=== PATIENT | male | born 1980 | race Caucasian/White ===

== ENCOUNTER → 2020-12-04 02:47 | Outpatient (CLI) | payer BC, SELFPAY ==
[2020-12-04 21:05] LABS: SARS-CoV-2 RNA PCR Negative
== END ==
PROVIDERS: PCP Family Medicine; Visit Provider Surgery
DX: Z01.812 Encounter for preprocedural laboratory examination (principal); Z20.822 Contact with and (suspected) exposure to COVID-19
CPT/HCPCS: C9803; U0003; U0005

== ENCOUNTER 2020-12-07 01:14 | Day surgery (SDC) | payer BC, SELFPAY ==
[2020-11-28 10:30] VITALS: BMI 52.3
--- NOTE | 2020-12-06 09:29 | WPDANESEPPF ---
Anes - Initial Pre Proc Eval Procedure: Operation Date: 12/07/20 13:00 Proposed Procedures p Excision Thrombosed External Hemorrhoid - Kaiden Chavez MD Date/Time: 12/06/20 09:29 Surgeon: Kaiden Chavez MD Pre Op Diagnosis: thrombosed external hemorrhoid Patient Data Age: 40 Gender: M Height: 1.85 m Weight: 180 kg Allergies Allergy/AdvReac Type Severity Reaction Status Date / Time Iodinated Contrast Media AdvReac Mild vomiting Verified 12/07/20 11:06 Home Medications Medication Instructions Recorded Confirmed Type hydrocortisone acetate 25 mg 25 mg RECTAL BID #12 ea 10/24/20 11/28/20 Rx rectal suppository multivitamin 1 tablet PO DAILY 10/24/20 12/07/20 History vitamin B complex 1 tablet PO DAILY 10/24/20 12/07/20 History betamethasone valerate 1 applic TOPICAL BID 12/07/20 12/07/20 History lisinopril 20 mg PO DAILY 12/07/20 12/07/20 History Patient hx anesthesia problems: none Family hx anesthesia problems: none PMFSH Past Medical History Medical History B12 deficiency Essential hypertension GERD without esophagitis Mass of kidney Psoriasis Right hydrocele Surgical History Surgical History History of colon resection History of tonsillectomy Hx of laparoscopic gastric banding S/P cholecystectomy Family History Family History Father Diabetes mellitus Mother Hypertension Grandparent Hypertension Family history of cardiovascular disease Family history of malignant neoplasm of breast in first degree relative Sibling Family history of arthritis Other Acute myocardial infarction Family history of polycystic kidney disease Social History Social History Smoking status: Never smoker Alcohol intake: current Substance use: never Substance use type: does not use Living arrangements: with family 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 Gender identity (if verbalized by the patient): Male Spiritual care concerns: No Agree to blood products: Yes Anes - Eval Final PreProcedure Day of Procedure 12/06/20 09:29 Patient weight: super morbidly obese Heart: regular rate and rhythm Lungs: clear to auscultation and normal air movement Airway: Mallampati scale class III Neurological: alert and oriented Last oral intake: >/= 8 hours ASA classification: III Emergent: no Anesthetic plan: proceed Anesthesia type and monitoring: general ETT and standard monitoring Informed Consent: The patient's anesthetic plan and its attendant risks and benefits were discussed with the patient/family/POA. Questions were solicited and answers provided to the satisfaction of the patient/family/POA.
[2020-12-07] VITALS (8 sets, daily range): BP systolic 132–170; BP diastolic 58–90; PULSE 65–92; RESP 13–20; TEMP 36.1–36.2; O2SAT 98–100
--- NOTE | 2020-12-07 08:17 | PM.SD2 ---
Same Day Admit/Disch: HPI History of Present Illness Chief complaint: thrombosed external hemorrhoid Narrative: Perez Patino is a 40 year old male who in September started noticing some mild rectal bleeding but also a tender painful nodule on the left side of the perianal area. He was seen in the office in October and noted to have a healing thrombosed external hemorrhoid in the left posterior quadrant. He reports he had a colonoscopy about 5 years ago. The patient is morbidly obese. He did have a colon resection for diverticulitis in 2010. Prior to that he had a laparoscopic gastric band in 2007. In 2011 he had the gastric band removed and had a gastric sleeve performed. In 2018 he had a laparoscopic cholecystectomy. He is taken to surgery now for excision of thrombosed external hemorrhoid. [facility] Past Medical History Medical History B12 deficiency Essential hypertension GERD without esophagitis Mass of kidney Psoriasis Right hydrocele Surgical History Surgical History History of colon resection History of tonsillectomy Hx of laparoscopic gastric banding S/P cholecystectomy Family History Family History Father Diabetes mellitus Mother Hypertension Grandparent Hypertension Family history of cardiovascular disease Family history of malignant neoplasm of breast in first degree relative Sibling Family history of arthritis Other Acute myocardial infarction Family history of polycystic kidney disease Social History Social History Smoking status: Never smoker Alcohol intake: current Substance use: never Substance use type: does not use Living arrangements: with family 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 Gender identity (if verbalized by the patient): Male Spiritual care concerns: No Agree to blood products: Yes Same Day Admit/Disch: Med Pre-admit Medications Home Medications Medication Instructions Recorded Confirmed Type hydrocortisone acetate 25 mg 25 mg RECTAL BID #12 ea 10/24/20 11/28/20 Rx rectal suppository multivitamin 1 tablet PO DAILY 10/24/20 12/07/20 History vitamin B complex 1 tablet PO DAILY 10/24/20 12/07/20 History betamethasone valerate 1 applic TOPICAL BID 12/07/20 12/07/20 History hydrocodone-acetaminophen 1 - 2 tablet PO Q6H PRN #7 tablet 12/07/20 Rx ketorolac 10 mg PO Q6H 4 Days #16 tablet 12/07/20 Rx lisinopril 20 mg PO DAILY 12/07/20 12/07/20 History Exam Const: General: comfortable, no acute distress, alert and awake Nutritional Appearance: obese Orientation/consciousness: patient oriented x3 Limitations: no limitations HENMT: Head: normocephalic and atraumatic Mouth: Yes Normal oral and palatal mucosa present Eyes: Conjunctivae: conjunctivae normal Pupils: Equal, round and reactive pupils present EOM: EOMs intact bilaterally Neck: Neck: normal visual inspection, no lymphadenopathy and nontender Resp: Effort & Inspection: normal respiratory effort Auscultation: clear to auscultation bilaterally Cardio: Rate: regular rate Rhythm: regular rhythm Heart sounds: no gallops, no murmurs and no rubs GI: Inspection: non-distended and obesity GI Palp: Yes Soft to palpation, No Tenderness to palpation present (GI), No Hepatomegaly present and No Splenomegaly present Rectal Exam: normal sphincter tone, External hemorrhoid(s) present ( left posterior quadrant, tender) and No Internal hemorrhoid(s) present Skin: Lesions: no lesions Rashes: no rashes Neuro: General: no focal motor deficits and CN's II-XI intact bilaterally Cranial nerves: Yes Equal, round and reactive pupils present, Yes Bilaterally intact EOM present, Yes facial symmetry and Yes Midline tongue present Speech: normal speech Motor exam (ne
--- NOTE | 2020-12-07 08:21 | WPDHPUPDATE1 ---
History and Physical Update Update Date/Time: 12/07/20 08:21 History and Physical has been reviewed, including an updated exam of the patient. There are NO changes in the patient's condition. Risks, benefits, and alternatives have been discussed and questions answered. Patient agrees to proceed with procedure.
[2020-12-07] MEDS: LACTATED RINGERS 1,000 ML 30 ML IV CONT (11:37)
[2020-12-07] MEDS: ACETAMINOPHEN 500 MG TABLET 1000 MG PO (11:37)
[2020-12-07] MEDS: KETOROLAC 15 MG/ML VIAL (*BKC) IV PUSH (11:39)
--- NOTE | 2020-12-07 12:45 | SUR.PREOP ---
Resting without needs or complaints.
[2020-12-07] MEDS: ceFAZolin 3 GM/D5W 100 ML 100 ML IVPB (14:26)
--- NOTE | 2020-12-07 14:43 | P.OP_ITS ---
Procedure Note - Detailed Date of procedure: 12/07/20 Pre-op diagnosis: thrombosed external hemorrhoid Thrombosed external hemorrhoid Post-op diagnosis: other (Left posterior internal and external hemorrhoids with bleeding) Procedure performed: Excision left posterior internal and external hemorrhoids Description of procedure: Patient was taken to the operating room and induced into general anesthesia. He was then turned to a prone position and placed in prone gypsy-knife position. The buttocks were taped apart. Prep and drape was carried out. The perianal area was examined. The external hemorrhoid in the le ft posterior quadrant was again noted. After placing the Kayenta-Vaughn anoscope, it was noted that the external hemorrhoid was associated with internal hemorrhoids. We infiltrated local anesthetic using 20 cc deep subdermal and 20 cc intra sphincteric. The left posterior internal and external hemorrhoidal complex was excised. The internal hemorrhoids were removed in 2 pieces. The resulting wound was closed with running locking 4 0 chromic suture. We again checked the perianal area and found no other significant abnormalities. The hemorrhoidal site was hemostatic with the suturing. The perianal area was dressed with Xeroform gauze fluffs and promise panties. Patient was returned to a supine position extubated and taken to recovery in good condition. Counts were correct x2. Anesthesia: GETA and local (0.5% Marcaine with Exparel) Surgeon: Kaiden Chavez MD Manager Of Creative Services: DOMINIQUE Dominguez Estimated blood loss (mL): 10 Drains: No Packing: No Pathology: yes (Left posterior internal and external hemorrhoids) Complications: None Condition: stable Disposition: PACU Findings: Left posterior quadrant internal and external hemorrhoids, history bleeding
[2020-12-07] MEDS: BUPIVACAINE HCL 0.5% PF 30 ML VIAL 40 ML INFILTRATE (15:13)
[2020-12-07] MEDS: ONDANSETRON INJ 4 MG/2 ML VIAL IV PUSH (16:47)
== END 2020-12-07 17:24 | disposition home or self-care (01) ==
PROVIDERS: PCP Family Medicine; Visit Provider Surgery
PROC: (CPT 46255; principal; 2020-12-07 13:00)
DX: K64.5 Perianal venous thrombosis (principal); K64.8 Other hemorrhoids; K64.4 Residual hemorrhoidal skin tags; E53.8 Deficiency of other specified B group vitamins; I10 Essential (primary) hypertension; K21.9 Gastro-esophageal reflux disease without esophagitis; L40.9 Psoriasis, unspecified; E66.01 Morbid (severe) obesity due to excess calories; Z68.43 Body mass index [BMI] 50.0-59.9, adult; Z90.49 Acquired absence of other specified parts of digestive tract
CPT/HCPCS: 46255; 88304; A9270; C9290; J0330; J0690; J1100; J1885; J2250; J2405; J2704; J3010; J7120

== ENCOUNTER 2021-06-03 21:10 | Emergency (ER) | payer BC, SELFPAY ==
[2021-06-03 21:13] VITALS: BP 167/85; PULSE 88; RESP 20; TEMP 36.4; O2SAT 100
[2021-06-03 22:10] VITALS: BP 122/77; PULSE 86; RESP 16; O2SAT 100
--- NOTE | 2021-06-03 22:26 | ED.SKABFB ---
HPI - Skin/Abscess/Foreign Bdy General Chief complaint: Skin/Abscess/Foreign Body Stated complaint: red, warm skin irritation right leg Time Seen by Provider: 06/03/21 22:05 Source: patient Mode of arrival: ambulatory Limitations: no limitations History of Present Illness HPI narrative: 40-year-old male Not diabetic Has a history of cellulitis Complains of a 1 day history of an area by his right ankle which is mildly tender and erythematous It is a little bigger today than it was yesterday No history of insect bite or anything like that No systemic symptoms Related Data Home Medications Medication Instructions Recorded Confirmed multivitamin 1 tablet PO DAILY 10/24/20 01/25/21 vitamin B complex 1 tablet PO DAILY 10/24/20 01/25/21 betamethasone valerate 1 applic TOPICAL BID 12/07/20 01/25/21 Allergies Allergy/AdvReac Type Severity Reaction Status Date / Time Iodinated Contrast Media AdvReac Mild vomiting Verified 06/03/21 21:16 Review of Systems Review of Systems: All systems reviewed & are unremarkable except as noted in HPI and below Constitutional: Constitutional: Reports no additional constitutional complaints, Denies chills, Denies fever(s) and Denies headache(s) ENT: Denies headache(s) Cardiovascular: Cardiovascular: Denies dyspnea Gastrointestinal: Gastrointestinal: Denies nausea and Denies vomiting Musculoskeletal: Musculoskeletal: Denies myalgias, Denies deformity, Denies arthralgias, Denies joint swelling and Denies numbness Integumentary/Breasts: Skin/Breast: Reports erythema, Reports rash and Denies wounds Neurologic: Denies headache(s) [facility] Past Medical History Medical History B12 deficiency Essential hypertension GERD without esophagitis Mass of kidney Psoriasis Right hydrocele Surgical History Surgical History History of colon resection History of tonsillectomy Hx of laparoscopic gastric banding S/P cholecystectomy Family History Family History Father Diabetes mellitus Mother Hypertension Grandparent Hypertension Family history of cardiovascular disease Family history of malignant neoplasm of breast in first degree relative Sibling Family history of arthritis Other Acute myocardial infarction Family history of polycystic kidney disease Social History Social History Alcohol intake: current Alcohol use details: Social Substance use: never Substance use type: does not use 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 Gender identity (if verbalized by the patient): Male Spiritual care concerns: No Agree to blood products: Yes Exam Const: General: cooperative, no acute distress and alert Nutritional Appearance: obese Orientation/consciousness: patient oriented x3 (alert) HENMT: Head: normal to inspection, normocephalic and atraumatic Ears: external ears normal Eyes: Conjunctivae: conjunctivae normal EOM: EOMs intact bilaterally Neck: Neck: supple and no JVD Resp: Effort & Inspection: normal respiratory effort and not labored Auscultation: other (BS =) Skin: General skin exam: no rashes or lesions noted Other: Erythematous area about 4 x 6 cm above the inner right ankle, mild associated warmth, no lymphangitis Neuro: General: patient oriented x3 (alert) and moves all extremities Speech: normal speech Extrem: General: no pedal edema Psych: Affect: normal affect Course Vital Signs Vital signs: Vital Signs Temperature 36.4 C 06/03/21 21:13 Pulse Rate 88 06/03/21 21:13 Respiratory Rate 20 06/03/21 21:13 Blood Pressure 167/85 H 06/03/21 21:13 Pulse Oximetry 100 06/03/21 21:13 Temperature 36.4 C 06/03/21 21:13 Pulse Rate 86 06/03/21 22:10 Respirator
[2021-06-03] MEDS: CEPHALEXIN 500 MG CAPSULE PO (22:44)
[2021-06-03 22:49] VITALS: BP 124/75; PULSE 86; RESP 16; O2SAT 100
== END 2021-06-03 22:51 | disposition home or self-care (01) ==
LOC: ANHED 22:27
PROVIDERS: Emergency Provider Emergency Medicine; PCP Family Medicine
DX: L03.115 Cellulitis of right lower limb (principal); I10 Essential (primary) hypertension; Z87.19 Personal history of other diseases of the digestive system; Z90.89 Acquired absence of other organs; Z90.49 Acquired absence of other specified parts of digestive tract; Z98.84 Bariatric surgery status
CPT/HCPCS: 99283; A9270

== ENCOUNTER → 2021-06-06 09:50 | Outpatient (CLI) | payer BC, SELFPAY ==
--- NOTE | ~2021-06-06 | MR_ITS ---
EXAMINATION: MR abdomen wo/w con INDICATION: Renal cysts TECHNIQUE: Coronal SSFSE ARC, WATER:coronal LAVA-FLEX, Coronal 2D FIESTA FatSat, Axial SSFSE BH ARC, Axial 3D DualEcho BH, Axial SSFSE-IR, Axial DWI b=500, Axial 2D FIESTA FatSat, pre and dynamic postco ntrast Axial LAVA ARC, postcontrast Coronal In and Opposed phase LAVA FLEX COMPARISON: 02/22/2019 CONTRAST: Multihance, 20 cc FINDINGS: The liver, spleen, pancreas, and adrenal glands are normal. The gallbladder is surgically a bsent. There is a 2.4 cm simple cyst of the left kidney upper pole. The previously described T1 hyper intense left kidney mass has decreased in size now measuring approximately 9 mm, consistent with a he morrhagic cyst. There are no pathologically enlarged abdominal lymph nodes. No dilated loops of bowel are evident. A peripelvic cyst is noted in the left kidney lower pole. No abnormal enhancement is pr esent after contrast administration. IMPRESSION: 1. Benign cysts of the kidneys. Reviewed, dictated and finalized at location A.
[2021-06-06 15:50] LABS: Estimated Glomerular Filt Rate > 60
== END ==
PROVIDERS: PCP Family Medicine; Visit Provider Urology
DX: N28.1 Cyst of kidney, acquired (principal)
CPT/HCPCS: 74183; A9577

== ENCOUNTER → 2021-06-06 15:20 | Outpatient (CLI) | payer BC, SELFPAY ==
--- NOTE | ~2021-06-06 | XR_ITS ---
XR knee LT 3V DATE: 06/06/2021 16:33 INDICATION: Left knee pain TECHNIQUE: Standing AP, lateral views. Honor view COMPARISON: None FINDINGS: There is periarticular spurring at the patellofemoral and lateral compartments consistent w ith osteoarthritis. There is mild loss of medial compartment joint space. No fracture or dislocation or joint effusion. No periosteal reaction or bone destruction. No radiopaq ue intra-articular loose body or chondrocalcinosis. IMPRESSION: Tricompartment osteoarthritis Reviewed, dictated and finalized at location A.
== END ==
PROVIDERS: PCP Family Medicine; Visit Provider Family Medicine
DX: M17.12 Unilateral primary osteoarthritis, left knee (principal)
CPT/HCPCS: 73562

== ENCOUNTER 2021-10-18 11:03 | Outpatient (CLI) | payer BC, SELFPAY ==
--- NOTE | 2021-10-19 15:50 | WPDHOLTEREM ---
Holter/Event Monitor Holter/Event Monitor Date of procedure: 10/18/21 Holter/Event Procedure: 24 Hr Holter Monitor Indications: Palpitations Conclusion: 1. 24 hour holter monitor on 10/18/21. 2. Underlying rhythm is sinus rhythm. HR range 46-125 bpm; average HR 72 bpm. 3. There are 12 premature supraventricular complexes. No supraventricular tachycardia. 4. There is 1 premature ventricular complex. No ventricular tachycardia. 5. No sinoatrial or atrioventricular blocks. No significant pauses greater than 2 seconds. 6. No symptoms available for correlation.
== END 2021-10-18 11:04 | disposition home or self-care (01) ==
PROVIDERS: PCP Family Medicine; Visit Provider Family Medicine
DX: R00.2 Palpitations (principal)
CPT/HCPCS: 93225; 93226

== ENCOUNTER 2021-11-02 08:23 | Outpatient (CLI) | payer BC, SELFPAY ==
--- NOTE | 2021-11-02 08:46 | EST_ITS ---
Patient Info Name: Perez Patino Age: 41 years : 1980 Gender: Male Ht: 72 in Wt: 400 lbs BSA: 3.14 m2 Exam Date: 11/02/2021 9:17 AM Exam Location: [facility] Patient Status: Outpatient Admit Date: 11/02/2021 Staff Ordering Physician: Joe Azar DO Heel Stainer: Kirt Mooney RDCS, RT Attending Provider: Joe Azar DO Referring Physician: Doe SHARIF; Exam Type: CA stress echo Study Info Indications R07.9 - Chest pain, unspecified Treadmill exercise stress echocardiogram is performed. Summary 1. 1. Negative Andrew exercise stress test for ischemic ST changes by ECG criteria. 2. 2. Reduced functional capacity, achieving 7 METs of workload. 3. 3. Appropriate HR response to exercise. 4. 4. Appropriate HR recovery at 1 minute post exercise. 5. 5. Baseline hypertension. 6. 6. Negative stress echocardiogram for ischemia by wall motion analysis. 7. 7. Patient informed of the above results. Stress Echo Findings Left Ventricle Appropriate increase in LV endocardial thickening with systole. Appropriate augmentation of contractility with systole. No wall motion abnormality. Left Ventricle Normal LV systolic function, no wall motion abnormality. Protocol: Andrew Stress ECG Details Stage: REST Duration (min): 1 min : 11 sec Speed (mph): 0.0 Grade (%): 0 HR (bpm): 66 SBP (mmHg): 142 DBP (mmHg): 69 METS: --- Stage: REST Duration (min): 21 min : 58 sec Speed (mph): 0.0 Grade (%): 0 HR (bpm): 80 SBP (mmHg): 142 DBP (mmHg): 69 METS: --- Stage: STAGE 1 Duration (min): 1 min : 0 sec Speed (mph): 1.7 Grade (%): 10 HR (bpm): 89 SBP (mmHg): 142 DBP (mmHg): 69 METS: --- Stage: STAGE 1 Duration (min): 2 min : 0 sec Speed (mph): 1.7 Grade (%): 10 HR (bpm): 118 SBP (mmHg): 142 DBP (mmHg): 69 METS: --- Stage: STAGE 1 Duration (min): 3 min : 0 sec Speed (mph): 1.7 Grade (%): 10 HR (bpm): 103 SBP (mmHg): 182 DBP (mmHg): 86 METS: --- Stage: STAGE 2 Duration (min): 1 min : 0 sec Speed (mph): 2.5 Grade (%): 12 HR (bpm): 127 SBP (mmHg): 182 DBP (mmHg): 86 METS: --- Stage: STAGE 2 Duration (min): 1 min : 36 sec Speed (mph): 0.0 Grade (%): 0 HR (bpm): 103 SBP (mmHg): 182 DBP (mmHg): 86 METS: --- Stage: RECOVERY Duration (min): 0 min : 23 sec Speed (mph): 0.0 Grade (%): 0 HR (bpm): 153 SBP (mmHg): 182 DBP (mmHg): 86 METS: --- Stage: RECOVERY Duration (min): 1 min : 23 sec Speed (mph): 0.0 Grade (%): 0 HR (bpm): 138 SBP (mmHg): 170 DBP (mmHg): 87 METS: --- Stage: RECOVERY Duration (min): 1 min : 50 sec Speed (mph): 0.0 Grade (%): 0 HR (bpm): 133 SBP (mmHg): 170 DBP (mmHg): 87 METS: --- Rest HR: 80 bpm Peak HR: 153 bpm Rest Sys BP: 142 mmHg Peak Sys BP: 182 mmHg Max Pred HR: 179 bpm % Max Pred HR: 85 % Target HR: 152 bpm Max RPP:
== END 2021-11-02 08:24 | disposition home or self-care (01) ==
PROVIDERS: PCP Family Medicine; Visit Provider Internal Medicine Cardiovascular Disease
DX: R07.9 Chest pain, unspecified (principal)
CPT/HCPCS: 93351

== ENCOUNTER 2022-06-04 10:43 | Outpatient (CLI) | payer BC, SELFPAY ==
[2022-06-04 11:19] LABS: Alanine Aminotransferase 28 U/L (6-50); Albumin Level 4.3 g/dL (3.5-5.1); Alkaline Phosphatase 71 U/L (38-126); Anion Gap 13 mmol/L (8-16); Aspartate Amino Transferase 20 U/L (17-59); Bilirubin,Total 0.6 mg/dL (0.2-1.3); Blood Urea Nitrogen 14 mg/dL (9-20); Calcium 8.9 mg/dL (8.4-10.2); Carbon Dioxide 26 mmol/L (22-30); Chloride 102 mmol/L (98-107); Cholesterol 143 mg/dL (0-200); Estimated Glomerular Filt Rate > 60; Glucose 98 mg/dL (65-110); HDL Direct 37 mg/dL; Potassium 4.2 mmol/L (3.4-5.0); Sodium 141 mmol/L (137-145); Triglycerides 100 mg/dL (<150)
[2022-06-04 11:30] LABS: LDL Cholesterol Direct 78 mg/dL
== END 2022-06-04 10:44 | disposition home or self-care (01) ==
PROVIDERS: PCP Family Medicine; Visit Provider Internal Medicine Cardiovascular Disease
DX: E78.5 Hyperlipidemia, unspecified (principal)
CPT/HCPCS: 36415; 80053; 80061

== ENCOUNTER 2023-04-12 17:11 | Emergency (ER) | payer BC, SELFPAY ==
[2023-04-12 17:13] VITALS: BP 145/70; PULSE 84; RESP 18; TEMP 36.7; O2SAT 100
--- NOTE | 2023-04-12 17:29 | ED.GENADULT ---
HPI - General Adult General Chief complaint: Skin/Abscess/Foreign Body Stated complaint: Cellulitis Left leg Time Seen by Provider: 04/12/23 17:19 History of Present Illness HPI narrative: 42-year-old male with history of cellulitis presented to the emergency department for evaluation of worsening lower extremity erythema. Patient has been on Augmentin for a dental abscess for the last few days. Patient states that he did notice some worsening left lower leg erythema and warmth. Related Data Home Medications Medication Instructions Recorded Confirmed multivitamin (Multiple Vitamins 1 tablet PO DAILY 10/24/20 04/07/23 tablet) vitamin B complex (B 1 tablet PO DAILY 10/24/20 04/07/23 Complex-Vitamin B12 tablet) betamethasone valerate 0.1 % 1 applic topical BID 12/07/20 04/07/23 topical ointment Allergies Allergy/AdvReac Type Severity Reaction Status Date / Time Iodinated Contrast Media AdvReac Mild vomiting Verified 04/12/23 17:28 Review of Systems Review of Systems: All systems reviewed & are unremarkable except as noted in HPI and below PMFSH Past Medical History Medical History B12 deficiency Essential hypertension GERD without esophagitis Hypertension Mass of kidney Obesity Psoriasis Right hydrocele Weight loss counseling, encounter for Surgical History Surgical History History of colon resection History of tonsillectomy Hx of laparoscopic gastric banding S/P cholecystectomy Family History Family History Father Diabetes mellitus Mother Hypertension Grandparent Hypertension Family history of cardiovascular disease Family history of malignant neoplasm of breast in first degree relative Sibling Family history of arthritis Other Acute myocardial infarction Family history of polycystic kidney disease Social History Social History (Updated 04/07/23 @ 08:59 by Dari Farfan) Smoking status: Never smoker Second hand tobacco smoke exposure: No Alcohol intake: current Alcohol use details: Social Substance use: never Substance use type: does not use Lack of Transportation: No Lack of Food: Never True Current Housing: I Have Housing Concerned About Future Housing: No Difficulty Paying Gas/Electric Bills: No Difficulty Paying for Meds: No Currently Unemployed: No Difficulty w/ Childcare or Family Care: No Living arrangements: with family Occupation/Education: occupation 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 HEAD: normocephalic, atraumatic. EYES: PERRLA/EOMI, conjunctivae clear. NOSE: Normal no drainage NECK: Supple. No adenopathy, no masses. RESPIRATORY: Airway patent, respirations nonlabored. Clear to auscultation bilaterally, no rales, rhonchi, wheezing. CARDIOVASCULAR: Regular rate and rhythm without murmurs rubs or gallops. ABDOMINAL: Soft, nontender, nondistended, normal bowel sounds MUSCULOSKELETAL: Moves all extremities. Strength/ROM intact, No edema, No calf tenderness. NEURO: Alert. Cranial nerves II through XII intact. Good gait. Good coordination SKIN: Mild left lower extremity erythema with mild warmth Course Course Emergency Course: 42-year-old male with history of cellulitis. Patient had been on Augmentin and was told to stop the Augmentin and patient was switched to clindamycin which would cover both cellulitic and dental infection. Patient was comfortable with this plan. Patient was encouraged of close follow-up with his primary care physician. All question c
[2023-04-12] MEDS: CLINDAMYCIN HCL 150 MG CAP 300 MG PO (17:40)
[2023-04-12 18:24] VITALS: BP 118/75; PULSE 68; RESP 17; O2SAT 97
== END 2023-04-12 18:26 | disposition home or self-care (01) ==
LOC: ANHED 17:56
PROVIDERS: Emergency Provider Emergency Medicine; PCP Family Medicine
DX: L03.116 Cellulitis of left lower limb (principal); I10 Essential (primary) hypertension; K21.9 Gastro-esophageal reflux disease without esophagitis; E53.8 Deficiency of other specified B group vitamins; E66.9 Obesity, unspecified; Z68.43 Body mass index [BMI] 50.0-59.9, adult; Z90.49 Acquired absence of other specified parts of digestive tract; Z98.84 Bariatric surgery status
CPT/HCPCS: 99283; A9270

== ENCOUNTER 2023-06-28 08:23 | Outpatient (CLI) | payer BC, SELFPAY ==
[2023-06-28 09:11] LABS: Alanine Aminotransferase 25 U/L (6-50); Albumin Level 3.9 g/dL (3.5-5.1); Alkaline Phosphatase 73 U/L (38-126); Anion Gap 6 mmol/L (8-16); Aspartate Amino Transferase 22 U/L (17-59); Blood Urea Nitrogen 11 mg/dL (9-20); Calcium 9.2 mg/dL (8.4-10.2); Carbon Dioxide 26 mmol/L (22-30); Chloride 107 mmol/L (98-107); Cholesterol 115 mg/dL (0-200); Estimated Glomerular Filt Rate > 60; Glucose 92 mg/dL (65-110); HDL Direct 36 mg/dL; Potassium 3.9 mmol/L (3.4-5.0); Sodium 139 mmol/L (137-145); Triglycerides 84 mg/dL (<150)
[2023-06-28 09:22] LABS: LDL Cholesterol Direct 64 mg/dL
== END 2023-06-28 08:24 | disposition home or self-care (01) ==
PROVIDERS: PCP Family Medicine; Visit Provider Internal Medicine Cardiovascular Disease
DX: E78.5 Hyperlipidemia, unspecified (principal)
CPT/HCPCS: 36415; 80053; 80061; 83036

== ENCOUNTER → 2023-08-05 11:23 | Outpatient (CLI) | payer BC, SELFPAY ==
--- NOTE | ~2023-08-05 | US_ITS ---
US venous doppler [facility] DATE: 08/05/2023 11:42 INDICATION: Left lower extremity pain TECHNIQUE: Real-time and color flow imaging and Doppler analysis of the veins of the left lower extre mity COMPARISON: None FINDINGS: Left greater saphenous vein is patent. There is spontaneous and phasic flow and normal augm entation and color flow signal and normal compression of the deep veins of the left lower extremity. IMPRESSION: No evidence of deep venous thrombosis of left leg Reviewed, dictated and finalized at Location A. Reviewed, dictated and finalized at location L. 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
== END ==
PROVIDERS: PCP Family Medicine; Visit Provider Nurse Practitioner Family
DX: M79.605 Pain in left leg (principal)
CPT/HCPCS: 93971

== ENCOUNTER 2024-12-18 07:49 | Outpatient (CLI) | payer OTHER, SELFPAY ==
--- OUTSIDE RECORDS SUMMARY | 2024-12-18 07:54 | XMS_ITS | Encounter Summary ---
Author Organization [facility] Address [address] [place] [address] Care Team Providers Care Deliverer Food Name Role Phone Rico Quiles MD Primary Care Provider [phone] Natalie Elliott DO Primary Care Provider [phone] Encounter Details Date Type Department Care Team (Late st Contact Info) Description 06/11/2019 RX Orders Only [facility] [address] [place] [address] Ulysses Luevano, PharmD Social History Tobacco Use Types Packs/Day Years Used Date Smoking Tobacco: Never Assessed Sex and Gender Information Value Date Recorded Sex Assigned at Not on file Legal Sex Male 2:45 PM CDT Gender Identity Not on file Sexual Orientation Not on file documented as of this encounter Plan of Treatment Not on file documented as of this encounter Visit Diagnoses Not on filedocumented in this encounter Additional Health Concerns Infection Onset Date Last Indicated Resolved Time COVID-19 Rule Out 04/16/2021 04/16/2021 04/16/2021 11:22 AM CDT COVID-19 Confirmed 04/16/2021 04/16/2021 12:33 AM CDT documented as of this encounter Care Teams Deliverer Food Relationship Specialty Start Date End Date Rico Quiles MD [address] [phone] PCP - General INFECTIOUS DISEASE 06/08/19 04/15/21 Natalie Elliott DO [address] [facility] [address] [place] [address] PCP - General FAMILY PRACTICE 04/16/21 documented as of this encounter
--- OUTSIDE RECORDS SUMMARY | 2024-12-18 07:54 | XMS_ITS | Continuity of Care Document ---
Author Organization [facility] Address [address] [facility] [address] [place] [address] Phone Care Team Providers Care Dovetail Machine Operator Name Role Phone Mamie Adams Unavailable Unavailable Advance Directives Directive Yes / No Effective Date File Name No Information Encounters Encounter Description Practice Location Reason(s) For Visit Diagnoses Date Provider Providers Copied on Encounter [facility], [address], [place], [place], [id number], [place] tel:[phone] [facility] No Information [address] ([facility]: [place] , [address], [place], [address], [place]. tel:[phone] Family History Family Member Type Diagnosis Age At Onset No Information Payers Payer name Insurance type Covered libertarian ID Authoriza tion(s) No Information Social History [...]
--- OUTSIDE RECORDS SUMMARY | 2024-12-18 07:54 | XMS_ITS | Data Portability ---
Author Organization [place] [facility] JOSE MANUEL [facility]- Address # [address] [facility] [place] [address] Assessment No assessment recorded. Plan of Treatment Reminders Order Date Submit Date Provider Last Modified By Organization Details Last Modified Time Details Appointments None record ed. Lab None record ed. Referral None record ed. Procedures None record ed. Surgeries None record ed. Imaging None record ed. Medication Orders None record ed. Patient TargetsNo targets recorded. Patient InstructionsNo instructions recorded. Reason for Referral None Reported. Problems No Known Problems Medical Equipment None Reported. Allergies No known drug allergies Medications Not known to be on any medication Vitals None Recorded Social History None recorded. Functional Status None recorded. Mental Status None recorded. Family History Nothing Reported. Medical History No medical history recorded. Immunizations Vaccine Type Date Status Note Provider Nam e and Address Organization Details Recorded Time Influenza, split virus, quadrivalent, PF 06/16/2021 completed [facility], 06/16/2021 12:30:02 Past Encounters Encounter ID Performer Location Encounter Start Date Encounter Closed Date Diagnosis/Indication Diagnosis SNOMED-CT Code Diagnosis ICD10 Code Diagnosis Note [id number] [facility] [address] [place] [address] [address] [place] [address] 06/16/2021 08:09:06 06/18/2021 14:54:04 Active or passive immunization [id number] Z23 Health Concerns Section Related Observation LastModified by Organization Detai ls LastModified Time None Recorded Concern Status LastModified by Organization Details LastModified Time None Recorded Advance Directives Directive None Recorded Payers Encounter Date Sequence Insurance Name Policy Number Policy [place] Covered Member ID [place] Member ID Guarantor Name 06/16/2021 2 [place] [employer] Delgado Patino [id number] Perez Patino 06/16/2021 1 [place] [place]) [id number] Perez Patino [id number] Perez Patino
--- OUTSIDE RECORDS SUMMARY | 2024-12-18 07:54 | XMS_ITS | Referral Summary ---
Author Organization [facility] Address [address] [place] [address] Care Team Providers Care Commissary Clerk Name Role Phone Natalie Elliott DO Primary Care Provider + Allergies No known active allergies Medications amoxicillin-clav ulanate (AUGMENTIN) 500-125 mg per tablet Take 1 tablet by mouth every 12 (twelve) hours 1 Active Anucort-HC 25 mg suppository INSERT ONE SUPPOSITORY RECTALLY TWICE DAILY 1 Active lisinopriL (PRINIVIL,ZESTRI L) 20 mg tablet Take 20 mg by mouth daily 1 Active betamethasone valerate (VALISONE) 0.1 % ointmentIndicati ons:Acquired buried penis Apply topically 2 (two) times a day Apply for 3 week on and 1 week off then repeat. 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 Cellulitis of lower extremity 10/07/2015 Overview (12/26/2016): Cellulitis of right lower extremity Diverticulitis of colon with perforation 015 Overview (12/26/2016): Diverticulitis of colon with perforation Body mass index 40+ - severely obese 02/15/2014 Overview (12/26/2016): BMI 40+ severely obese Immunizations Immunization Administration Dates Next Due Influenza, Quadrivalent, Split, Intramuscular Influenza, Trivalent, IM (MDV) 08/31/2014,2012 Tdap 02/15/2014 Social History Tobacco Use Types Packs/Day Years Used Date Smoking Tobacco: Never Cigarettes Smokeless Tobacco: Never Tobacco Cessation:Counseling Given: Not Answered Alcohol Use Standard Drinks/Week Comments Yes 0 (1 standard drink = 0.6 oz pur e alcohol) Personal Safety Answer Date Recorded Getting School Help Needed Not on file 11/15 Sex and Gender Information Value Date Recorded Sex Assigned at Not on file Legal Sex Male 10:09 AM SENIOR QA AUTOMATION ENGINEER Gender Identity Male 06/13/2021 6:37 AM CDT Sexual Orientation Straight 06/13/2021 6: 37 AM CDT Last Filed Vital Signs Vital Sign Reading Time Taken Comments Blood Pressure 130/83 10/13/2015 10:10 AM SENIOR QA AUTOMATION ENGINEER Pulse 65 10/13/2015 10:10 AM SENIOR QA AUTOMATION ENGINEER Temperature - - Respiratory Rate - - Oxygen Saturation 100% 10/13/2015 10:10 AM SENIOR QA AUTOMATION ENGINEER Inhaled Oxygen Concentration - - Weight 173 kg (381 lb 6.4 oz) 10/13/2015 10:10 A M SENIOR QA AUTOMATION ENGINEER Height 182.9 cm (6') 10/13/2015 10:10 AM SENIOR QA AUTOMATION ENGINEER Body Mass Index 51.73 10/13/2015 10:10 AM SENIOR QA AUTOMATION ENGINEER Plan of Treatment Not on file Insurance ANTHEM ACCESS ANTHEM ACCESS [facility] [employer]ER[employer] Care Teams Commissary Clerk Relationship Specialty Start Date End Date Natalie Elliott DO [address] [place] [address] PCP - General Family Medicine 11/24/20
--- OUTSIDE RECORDS SUMMARY | 2024-12-18 07:54 | XMS_ITS | Encounter Summary ---
Author Organization [facility] Address [address] [place] [address] Care Team Providers Care Production Machine Shop Supervisor Name Role Phone Rico Quiles MD Primary Care Provider [phone] Natalie Elliott DO Primary Care Provider [phone] Encounter Details Date Type Department Care Team (Late st Contact Info) Description 06/09/2019 Therapy Plan [facility] [address] [place] [address] Nakita Ndiaye PA [address] [place] [address] Social History Tobacco Use Types Packs/Day Years [...] documented as of this encounter Care Teams Production Machine Shop Supervisor Relationship Specialty Start Date End Date Rico Quiles MD 2043 [facility] [address] [place] [address] PCP - General INFECTIOUS DISEASE 06/08/19 04/15/21 [place] [address] [place] [phone] PCP - General FAMILY PRACTICE 04/16/21 documented as of this encounter
--- OUTSIDE RECORDS SUMMARY | 2024-12-18 07:54 | XMS_ITS | Clinical Summary ---
Author Organization [facility] Address [address] [place] [address] Care Team Providers Care Materials Planning Manager Name Role Phone LexiNatalie Primary Care Provider [phone] Allergies Active Allergy Reactions Criticality Noted Date Comments Iodine Vomiting 04/16/2021 Medications lisinopril 20 MG tablet Take 20 mg by mouth daily. Active Active Problems Problem Noted Date Diagnosed Date Cellulitis 06/09/2019 Family History Medical History Relation Comments Kidney Disease Cousin Diabetes Father Kidney Disease Mother Relation Status Comments Cousin Father Mother Social History Tobacco Use Types Packs/Day Years Used Date Smoking Tobacco: Never Smokeless Tobacco: Never Alcohol Use Standard Drinks/Week Comments Yes 0 (1 standard drink = 0.6 oz pur e alcohol) Sex and Gender Information Value Date Recorded Sex Assigned at Not on file Legal Sex Male 2:45 PM CDT Gender Identity Not on file Sexual Orientation Not on file Last Filed Vital Signs Vital Sign Reading Time Taken Comments Blood Pressure 121/89 04/16/2021 11:00 AM CDT Pulse 84 04/16/2021 11:00 AM CDT Temperature 36.7 C (98.1 F) 04/16/2021 11:00 AM CDT Respiratory Rate 16 04/16/2021 11:00 AM CDT Oxygen Saturation 97% 04/16/2021 11:00 AM CDT Inhaled Oxygen Concentration - - Weight 172.4 kg (380 lb) 04/16/2021 11:00 AM CDT Height 182.9 cm (6') 04/16/2021 11:00 AM CDT Body Mass Index 51.54 04/16/2021 11:00 AM CDT Plan of Treatment Health Maintenance Due Date Last Done Comments Annual Physical 1983 Hepatitis C 1998 Hepatitis B Vaccines (1 of 3 - 19+ 3-dose series) 1999 DTaP, Tdap and Td Vaccines (2 - Td or Tdap) 02/16/2024 02/15/2014 COVID-19 Vaccine ( - season) 2024 Influenza Adult (#1) 2024 06/16/2021, 06/22/2015, 08/31/2014, Additional history exists HPV Vaccines Aged Out No longer eligi ble based on patient's age to complete this topic Meningococcal B Vaccine Aged Out No l onger eligible based on patient's age to complete this topic Meningococcal Vaccine Aged Out No alla gregg eligible based on patient's age to complete this topic Pneumococcal Vaccine: Pediatrics (0 to 5 Years) and At-Risk Patients (6 to 64 Years) Aged Out No longer eligible based on patient's age to complete this topic RSV Immunizations Under 20 Months Aged Out No longer eligible based on patient's age to complete this topic Insurance [facility] Care Teams Materials Planning Manager Relationship Specialty Start Date End Date Natalie Elliott DO PCP - General FAMILY PRACTICE 04/16/21
--- OUTSIDE RECORDS SUMMARY | 2024-12-18 07:54 | XMS_ITS | Clinical Summary ---
Author Organization [facility] Address [address] [place] [address] Care Team Providers Care Director Of Labor And Delivery Name Role Phone Natalie Elliott DO Primary [...] Influenza, Trivalent, IM (MDV) 08/31/2014,2012 Tdap 02/15/2014 Surgical History Surgery Date Site/Laterality Comments OTHER SURGICAL HISTORY lap band in 2008 TONSILLECTOMY Tonsillectomy OTHER SURGICAL HISTORY diagnostic laparoscopy with 1 hour of extensive lysis of adhesions and sigmoid colectomy COLON SURGERY 2011 CHOLECYSTECTOMY 2020 HERNIA REPAIR 2019 BARIATRIC SURGERY 2009 Medical History Medical History Date Comments Hx Other Medical obesity; Commen ts: GDS 02/28/2015 - Hx Other Medical Diverticulitis; Comments: GDS 02/28/2015 - Hypertension 2 years ago Infection 1999 Cellulitis Family History Medical History Relation Name Comments Diabetes Father Marek Patino Diabetes type II Father Marek Patino Diabete s mellitus type 2; Obesity Father Marek Patino Hypertension Mother Lynda Patino Hypertensi on; Breast cancer Paternal Grandmother Cancer , breast; Relation Name Status Comments Father Marek Patino Mother Lynda Patino Paternal Grandmother Social History Tobacco Use Types Packs/Day Years [...] on file Legal Sex Male 10:09 AM BLUING OVEN TENDER Gender Identity Male 06/13/2021 6:37 AM CDT Sexual Orientation Straight 06/13/2021 6: 37 AM CDT Obstetrics History Last Filed Vital Signs Vital Sign Reading Time Taken Comments Blood Pressure 130/83 10/13/2015 10:10 AM BLUING OVEN TENDER Pulse 65 10/13/2015 10:10 AM BLUING OVEN TENDER Temperature - - Respiratory Rate - - Oxygen Saturation 100% 10/13/2015 10:10 AM BLUING OVEN TENDER Inhaled Oxygen Concentration - - Weight 173 kg (381 lb 6.4 oz) 10/13/2015 10:10 A M BLUING OVEN TENDER Height 182.9 cm (6') 10/13/2015 10:10 AM BLUING OVEN TENDER Body Mass Index 51.73 10/13/2015 10:10 AM BLUING OVEN TENDER Plan of Treatment Health Maintenance Due Date Last Done Comments Depression Screening 1980 Hepatitis C Screening 1980 Varicella Vaccines (1 of 2 - 13+ 2-dose series) 1993 Hepatitis B Screening 1998 Regular Well Visit/Exam 18-64 1998 DTaP/Tdap/Td Vaccine (2 - Td or Tdap) 02/16/2024 02/15/2014 Influenza Vaccine (#1) 2024 , 07/15/2020, 05/29/2019, Additional history exists HPV Vaccines Aged Out No longer eligi ble based on patient's age to complete this topic Pneumococcal vaccine <65 Aged Out No longer eligible based on patient's age to complete this topic Insurance [facility] Member Subscriber Plan / Payer ( fective 2008-Present) Name:Perez Patino Relation to Subscriber:Self Name:Perez Patino Payer ID:[id number] (NA) Group ID:[id number] Type:[employer] Address: [facility] [id number] [place] [id number] Care Teams Director Of Labor And Delivery Relationship Specialty Start Date End Date Natalie Elliott DO [address] [place] [address] PCP - General Family Medicine 11/24/20
[2024-12-18 08:47] LABS: Alanine Aminotransferase 30 U/L (6-50); Alkaline Phosphatase 75 U/L (38-126); Anion Gap 9 mmol/L (4-12); Aspartate Amino Transferase 22 U/L (17-59); Blood Urea Nitrogen 16 mg/dL (9-20); Calcium 9.1 mg/dL (8.4-10.2); Carbon Dioxide 25 mmol/L (22-30); Chloride 105 mmol/L (98-107); Estimated Glomerular Filt Rate > 60; Glucose 107 mg/dL (65-110); Potassium 4.2 mmol/L (3.4-5.0); Sodium 139 mmol/L (137-145)
[2024-12-18 09:09] LABS: Hemoglobin A1C 5.5 % (<5.7)
[2024-12-18 09:22] LABS: Vitamin D 25 Hydroxy 20.4 ng/mL
== END 2024-12-18 07:50 | disposition home or self-care (01) ==
LOC: ANHLAB 07:53
PROVIDERS: PCP Nurse Practitioner Family; Visit Provider Nurse Practitioner Family
DX: Z13.1 Encounter for screening for diabetes mellitus (principal)
CPT/HCPCS: 36415; 80053; 82306; 83036

== ENCOUNTER 2025-06-21 10:53 | Outpatient (RCR) | payer OTHER, SELFPAY ==
[2025-06-21 11:51] VITALS: BMI 50.3
[2025-06-21 13:14] VITALS: BMI 50.3
--- NOTE | 2025-06-24 12:31 | PCDIET ---
Nutrition consult completed 06/21/25.
== END 2025-09-05 14:00 | disposition home or self-care (01) ==
LOC: ANHDMC 10:53
PROVIDERS: PCP Nurse Practitioner Family; Visit Provider Nurse Practitioner Family
DX: Z68.43 Body mass index [BMI] 50.0-59.9, adult (principal); Z71.3 Dietary counseling and surveillance
CPT/HCPCS: 97802

== ENCOUNTER 2025-06-27 08:53 | Outpatient (CLI) | payer OTHER, SELFPAY ==
--- OUTSIDE RECORDS SUMMARY | 2005-07-02 10:30 | XMS_ITS | Continuity of Care Document ---
Author Organization [facility] Address [address] [facility] [address] [place] [address] Phone Care Team Providers Care Corporate Communications Associate Name Role Phone Mamie Adams Unavailable Unavailable Advance Directives Directive Yes / No Effective Date File Name No Information Encounters Encounter Description Practice Location Reason(s) For Visit Diagnoses Date Provider Providers Copied on Encounter [facility], [address], [place], [place], [id number], [place] tel:[phone] [facility] No Information [address]. [address] , [address], [place], [address], [place]. tel:[phone] Family History Family Member Type Diagnosis Age At Onset No Information Payers Payer name Insurance type Covered constitution party ID Authoriza tion(s) No Information Social History Type Description Quantity Date Captured Comments Sex Male Smoking Status No Information Chief Complaint And Reason For Visit No Information Reason For Referral Reason For Referral No Information History Of Present Illness Encounter Date Complaint History Of Prese nt Illness No Information Functional Status Date Functional Assessmen t No Information Instructions Date Instruction Additional Infor mation No Information Assessments Type Assessment Date No Information Patient Care Teams Name Effective Dates (start - stop) Status Members No Information
--- OUTSIDE RECORDS SUMMARY | 2025-06-27 09:36 | XMS_ITS | Clinical Summary ---
Author Organization [facility] Address [address] [place] [address] Phone Care Team Providers Care Record Librarian Name Role Phone Unavailable Primary Care Provider Unavailabl e Allergies No known active allergies Medications lisinopriL (PRINIVIL) 20 mg tablet Take 20 mg by mouth daily. Active atorvastatin (LIPITOR) 40 mg tablet Take 40 mg by mouth daily. Active pantoprazole (PROTONIX) 40 mg Tablet, Delayed Release (E.C.) Take 1 Tablet (40 mg) by mouth daily. 90 Tablet 05/14/2025 2:25 PM CDT 05/13/2025 08/11/20 25 Active ondansetron (ZOFRAN ODT) 4 mg Tablet, Rapid Dissolve Dissolve 1 Tablet (4 mg) on top of tongue then swallow with saliva every 6 hours as needed for Nausea. 15 Tablet 1 05/14/2025 2:25 PM CDT 05/13/2025 Active HYDROcodone-kia taminophen (NORCO) 5-325 mg tabletIndicatio ns:Morbid obesity with BMI of 50.0-59.9, adult (CMS[facility]) Take 1 Tablet by mouth every 4 hours as needed for Moderate Pain. Max Daily Amount: 6 Tablets 20 Tablet 05/14/2025 2:25 PM CDT 05/13/2025 Active Encounters Date Type Department Care Team Description 06/14/2025 External Device Data ST[facility] ABSTRACTION Provider, Abstract 06/14/2025 External Device Data [facility] ABSTRACTION Provider, Abstract 06/14/2025 External Device Data [facility] ABSTRACTION Provider, Abstract 05/31/2025 External Device Data [facility] ABSTRACTION Provider, Abstract 05/24/2025 External Device Data [facility] ABSTRACTION Provider, Abstract 05/18/2025 External Device Data [facility] ABSTRACTION Provider, Abstract 05/17/2025 External Device Data [facility] ABSTRACTION Provider, Abstract 05/17/2025 External Device Data [facility] ABSTRACTION Provider, Abstract 05/13/2025 7:47 AM CDT Anesthesia Event [facility] Operating Room [address] [place] [address] Rater, MD Fernando Germain Lisa M, PA-C 05/13/2025 7:30 AM CDT - 05/13/2025 9:00 AM CDT Surgery [facility] Operating Room [address] [place] [address] Basil Pal, LAPAROSCOPIC CONVERSION SLEEVE TO DUODENAL SWITCH 05/13/2025 5:14 AM CDT - 05/14/2025 4:19 PM CDT Hospital Encounter [facility] General Surgery [address] [place] [address] Basil Pal DO Morbid obesity (CMS/HCC) Discharge Disposition: Home or Self Care 05/13/2025 Travel 05/03/2025 External Device Data ST[facility] ABSTRACTION Provider, Abstract 05/03/2025 External Device Data [facility] ABSTRACTION Provider, Abstract 05/03/2025 External Device Data [facility] ABSTRACTION Provider, Abstract 05/02/2025 8:50 AM CDT - 05/02/2025 11:59 PM CDT Hospital Encounter [facility] Pre Surgical Assessment [address] [place] [address] Basil Pal, Discharge Disposition: Home or Self Care from Last 3 Months Social History Tobacco Use Types Packs/Day Years Used Date Smoking Tobacco: Never Tobacco Cessation:Counseling Given: Not Answered Alcohol Use Standard Drinks/Week Comments Never 0 (1 standard drink = 0.6 oz pur e alcohol) Feeling Safe Answer Date Recorded Are you in a relationship wi th someone who hurts you emotionally and/or physically? No 05/13/2025 Food Insecurity Answer Date Recorded Patient needs follow up regardin 05/13/2025 Transportation Needs Answer Date Record ed Patient needs follow up regardin 05/13/2025 Utility Needs Answer Date Recorded Patient needs follow up regardin 05/13/2025 Sex and Gender Information Value Date Recorded Sex Assigned at Not on file Legal Sex Male 1:38 PM CDT Gender Identity Not on file Sexual Orientation Not on file Last Filed Vital Signs Vital Sign Reading Time Taken Comments Blood Pressure 117/59 05/14/2025 8:21 AM CDT Pulse 72 05/14/2025 8:21 AM CDT Temperature 36.9 C (98.4 F) 05/14/2025 8:21 AM CDT Respiratory Rate 16 05/14/2025 8:21 AM CDT Oxygen Saturation 97% 05/14/2025 8:21 AM CDT Inhaled Oxygen Concentration - - Weight 172.6 kg (380 lb 9.6 oz) 05/13/2025 7:04 AM CDT Height 182.9 cm (6') 05/13/2025 7:04 AM CDT Body Mass Index 51.62 05/13/2025 7:04 AM CDT Plan of Treatment Health Maintenance Due Date Last Done Comments Pre-Diabetes and Diabetes Screening 1980 HEPATITIS B VACCINES (1 of 3 - 19+ 3-dose series) 1999 HPV VACCINES (1 - 3-dose SCD M series) 2007 DTAP/TDAP/TD VACCINES (2 - T d or Tdap) 02/16/2024 02/15/2014 INFLUENZA VACCINE (#1) 2025 5, 08/31/2014, 08/11/2013 Medical Devices Implanted Type Area Parachute Packer Device Identifier Shelf Expiration Date Model / Serial / Lot Endoclip Ligamax Med/Lrg 5mm W/Rubber Process Hand El5ml - [id number] Implanted:Qty : 1 on 05/13/2025 by Basil Pal DO at [facility] N/A: Abdomen [employer] [id number] 11/19/2029 EL5ML / / [id number] Procedures Procedure Name Priority Date/Time Associated Diagnosis Comments VERIFICATION BLOOD GROUP Stat 05/13/2025 2:18 PM CDT Encounter for blood typing XR UPR GI WATER BASIA CONTRAST Routine 05/13/2025 1:03 PM CDT [place] UNLISTED LAPAROSCOPY PROCEDURE STOMACH 05/13/2025 7:30 AM CDT Morbid obesity (CMS/HCC) Special Needs weight > 300 DR REQ 60 MIN AND 7:30 START. TYPE AND SCREEN Routine 05/02/2025 10:00 AM CDT from Last 3 Months Results * VERIFICATION BLOOD GROUP (05/13/2025 2:18 PM CDT) ABO GROUP B 05/13/2025 3:30 PM CDT [facility] (D) TYPE Positive 05/13/2025 3:30 PM CDT [facility] Blood Venipuncture / Unknown 05/13/2025 2:18 PM CDT 05/13/2025 2:40 PM CDT Basil Pal DO BLOOD BANK ORDERABLES F inal Result [facility] CLIA# [id number] [place] [address] * XR UPR GI WATER BASIA CONTRAST (05/13/2025 1:03 PM CDT) Anatomical Region Laterality Modality Abdomen Computed Radiogr aphy 05/13/2025 1:06 PM CDT Impressions 05/13/2025 1:20 PM CDT IMPRESSION: 1. No contrast extravasation noted. DICTATION LOCATION: Location [address] [place] [address] Narrative 05/13/2025 1:20 PM CDT EXAM: XR UPR GI WATER BASIA CONTRAST DATE: 05/13/2025 HISTORY: Morbid obesity with BMI of 50.0-59.9, adult (CMS/HCC); Morbid obesity with BMI of 50.0-59.9, adult (CMS/HCC); Encounter for blood typing; Benign hypertension; Other - Please see comments, Comment: post op duodenal switch Fluoroscopy time: 0.5 minutes REFERENCE AIR KERMA DOSE: 394.4 mGy FINDINGS: The patient consumed water-soluble contrast. The esophagus has a normal appearance. No contrast extravasation was noted. There is a surgical drain ending in the stomach. Contrast flows into the proximal small bowel. Procedure Note Ankit Govea MD - 05/13/2025 EXAM: XR UPR GI WATER BASIA CONTRAST DATE: 05/13/2025 HISTORY: Morbid obesity with BMI of 50.0-59.9, adult (CMS/HCC); Morbid obesity with BMI of 50.0-59.9, adult (CMS/HCC); Encounter for blood typing; Benign hypertension; Other - Please see comments, Comment: post op duodenal switch Fluoroscopy time: 0.5 minutes REFERENCE AIR KERMA DOSE: 394.4 mGy FINDINGS: The patient consumed water-soluble contrast. The esophagus has a normal appearance. No contrast extravasation was noted. There is a surgical drain ending in the stomach. Contrast flows into the proximal small bowel. IMPRESSION: 1. No contrast extravasation noted. DICTATION LOCATION: Location [address] [place] [address] Basil Pal DO DIAGNOSTIC IMAGING ORDE RABLES Final Result * TYPE AND SCREEN (05/02/2025 10:00 AM CDT) ABO GROUP B 05/02/2025 11:41 AM CDT [facility] [employer] [facility] (D) TYPE Positive 05/02/2025 11:41 AM CDT [facility] ANTIBODY SCREEN Negative 11:41 AM CDT [facility] Comment:TYPE AND SCREEN EXTE NDED UNTIL 05/16/2025. VERIFICATION ORDERED. Blood Venipuncture / Unknown 05/02/2025 10:00 AM CDT 05/02/2025 10:19 AM CDT Basil Pal DO BLOOD BANK ORDERABLES E dited Result - Final [facility] [employer] [facility] CLIA# [id number] [place] [address] from Last 3 Months Insurance [employer] CHOICE POS II RX [facility] [employer] Advance Directives For more information, please contact: [phone] * Full Code (Latest Code Status on File) Date Activated Date Inactivated Comments 05/13/2025 11:17 AM 05/14/2025 6:24 PM * Full Code Date Activated Date Inactivated Comments 05/13/2025 5:39 AM 05/13/2025 11:17 AM
--- OUTSIDE RECORDS SUMMARY | 2025-06-27 09:36 | XMS_ITS | Clinical Summary ---
Author Organization [facility] Address [address] [place] [address] Care Team Providers Care Protection Officer Name Role Phone Natalie Elliott DO Primary [...] Legal Sex Male 10:09 AM SENIOR QA TESTER Gender Identity Male 06/13/2021 6:37 AM CDT Sexual Orientation Straight 06/13/2021 6: 37 AM CDT Obstetrics History Last Filed Vital Signs Vital Sign Reading Time Taken Comments Blood Pressure 130/83 10/13/2015 10:10 AM SENIOR QA TESTER Pulse 65 10/13/2015 10:10 AM SENIOR QA TESTER Temperature - - Respiratory Rate - - Oxygen Saturation 100% 10/13/2015 10:10 AM SENIOR QA TESTER Inhaled Oxygen Concentration - - Weight 173 kg (381 lb 6.4 oz) 10/13/2015 10:10 A M SENIOR QA TESTER Height 182.9 cm (6') 10/13/2015 10:10 AM SENIOR QA TESTER Body Mass Index 51.73 10/13/2015 10:10 AM SENIOR QA TESTER Plan of Treatment Health Maintenance Due Date Last Done Comments Depression Screening 1980 Hepatitis C Screening 1980 Varicella Vaccines (1 of 2 - 13+ 2-dose series) 1993 Hepatitis B Screening 1998 Regular Well Visit/Exam 18-64 1998 HPV Vaccines (1 - 3-dose SCDM series) 2007 DTaP/Tdap/Td Vaccine (2 - Td or Tdap) 02/16/2024 02/15/2014 Influenza Vaccine (#1) 2025 , 07/15/2020, 05/29/2019, Additional history exists Pneumococcal vaccine <65 Aged Out No longer eligible based on patient's age to complete this topic Insurance [facility] Member Subscriber Plan / Payer ( fective 2008-Present) Name:Perez Patino Relation to Subscriber:Self Name:Sukumar Perez Snyder Payer ID:[id number] (NAIC) Group ID:[id number] Type:[employer] Address: [facility] [id number] [phone] Care Teams Protection Officer Relationship Specialty Start Date End Date Natalie Elliott DO [address] [place] [id number] PCP - General Family Medicine 11/24/20
[2025-06-27 10:00] LABS: Hematocrit 46.1 % (42.0-52.0); Hemoglobin 14.7 g/dL (14.0-18.0); Mean Corpuscular HGB Conc 31.9 g/dl (32-36); Mean Corpuscular Hemoglobin 30.4 pg (26-34); Mean Corpuscular Volume 95.4 fl (80-100); Platelet Count Result 188 k/mm3 (150-375); Red Blood Count 4.83 M/mm3 (4.6-6.20); White Blood Count 6.3 K/mm3 (4.5-10.0)
[2025-06-27 10:20] LABS: Alanine Aminotransferase 35 U/L (6-50); Albumin Level 4.2 g/dL (3.5-5.1); Alkaline Phosphatase 82 U/L (38-126); Anion Gap 10 mmol/L (4-12); Aspartate Amino Transferase 26 U/L (17-59); Bilirubin,Total 1.3 mg/dL (0.2-1.3); Blood Urea Nitrogen 11 mg/dL (9-20); Calcium 9.5 mg/dL (8.4-10.2); Carbon Dioxide 27 mmol/L (22-30); Chloride 105 mmol/L (98-107); Estimated Glomerular Filt Rate > 60; Glucose 96 mg/dL (65-110); Potassium 3.4 mmol/L (3.4-5.0); Sodium 142 mmol/L (137-145); Total Protein 7.3 g/dL (6.3-8.2)
[2025-06-27 10:22] LABS: Iron 65 ug/dL (49-181)
[2025-06-27 10:32] LABS: Parathyroid Intact 83.9 pg/mL (14.5-75.2)
[2025-06-27 10:55] LABS: Thyroid Stimulating Hormone Reflex 1.470 uIU/mL (0.465-4.68)
[2025-06-27 11:05] LABS: Ferritin 211.00 ng/mL (17.9-464)
[2025-06-27 11:32] LABS: Vitamin B12 374.0 pg/mL (239-931)
[2025-06-30 15:09] LABS: Selenium, Plasma 131 ug/L (93-198)
== END 2025-06-27 08:54 | disposition home or self-care (01) ==
LOC: ANHLAB 09:00
PROVIDERS: PCP Nurse Practitioner Family; Visit Provider Surgery
DX: R63.4 Abnormal weight loss (principal); R53.82 Chronic fatigue, unspecified; E66.01 Morbid (severe) obesity due to excess calories; D64.9 Anemia, unspecified; K91.2 Postsurgical malabsorption, not elsewhere classified; Z98.84 Bariatric surgery status; Z13.818 Encounter for screening for other digestive system disorders
CPT/HCPCS: 36415; 80053; 82306; 82607; 82728; 82746; 83540; 83970; 84255; 84443; 85027